=== PATIENT | female | born 1960 | race Caucasian/White ===

== ENCOUNTER 2023-05-12 11:45 | Inpatient (IN) | payer BC, OTHER ==
[~2023-05-12] VITALS: Ht 149.9 cm; Wt 144.7 kg
[~2023-05-12 11:45] MED LIST: ASPIRIN; CYMBALTA30 MG PO; FLUOXETINE HCL20 MG PO; LEVOTHYROXINE75 MCG PO; METFORMIN HCL500 MG PO; NORCO 5-325 TA1 EACH PO; PRILOSEC OTC20 MG; PROGESTERONE200 MG PO; ZESTRIL20 MG PO
[2023-05-12] MEDS ORDERED: KETOROLAC TROMETHAMINE 30 MG/ML VIAL IV STA (12:04)
[2023-05-12] MEDS ORDERED: SODIUM CHLORIDE 0.9% 1000ML 1,000 ML IV STA (12:04)
[2023-05-12] MEDS ORDERED: DICYCLOMINE HCL 20 MG/2 ML VIAL IM ONE (12:15)
[2023-05-12] MEDS: ONDANSETRON HCL INJ 2MG/ML 2ML 2 MG/ML VIAL IV PRN ×2 (13:16→21:34)
[2023-05-12 13:27] LABS: BASOPHILS % 0.3 % (0.0-1.0); EOSINOPHILS # (AUTO) 0.1 (0.0-0.4); EOSINOPHILS % 0.5 % (0.0-6.0); HEMATOCRIT 40.1 % (34.2-44.1); HEMOGLOBIN 12.9 g/dL (12.0-16.0); LYMPHOCYTES # (AUTO) 2.2 (1.0-3.2); LYMPHOCYTES % 16.1 % (18.0-39.1); MEAN CORPUSCULAR HEMOGLOBIN 27.3 pg (28-32); MEAN CORPUSCULAR HGB CONC 32.2 g/dL (31-35); MEAN CORPUSCULAR VOLUME 84.8 fL (81-99); MONOCYTES # (AUTO) 0.8 (0.2-0.8); MONOCYTES % 6.1 % (4.4-11.3); NEUTROPHILS # (AUTO) 10.4 (2.1-6.9); NEUTROPHILS % 76.6 % (38.7-80.0); PLATELET COUNT 408 x10e3/uL (140-360); RED BLOOD COUNT 4.73 x10e6/uL (3.6-5.1); RED CELL DISTRIBUTION WIDTH 14.3 % (11.7-14.4); WHITE BLOOD COUNT 13.54 x10e3/uL (4.8-10.8)
[2023-05-12 13:37] LABS: CLARITY,URINE SL CLOUDY (CLEAR); COLOR,URINE YELLOW (YELLOW); LEUKOCYTE ESTERASE ,URINE SMALL (NEGATIVE); NITRITE,URINE NEGATIVE (NEGATIVE); PH,URINE 7 (5 - 7); PROTEIN,URINE DIPSTICK 2+ (NEGATIVE)
[2023-05-12 13:38] LABS: BILIRUBIN,URINE SMALL (NEGATIVE); GLUCOSE, URINE NEGATIVE (NEGATIVE); KETONES,URINE NEGATIVE (NEGATIVE); URINE UROBILINOGEN 0.2 mg/dL (0.2 - 1)
[2023-05-12 13:46] LABS: BACTERIA,URINE FEW /HPF; EPITHELIAL CELLS,URINE MODERATE /LPF; WBC,URINE (MAN) 21-50 /HPF (0-5)
[2023-05-12 13:47] LABS: CALCIUM OXALATE CRYSTALS,UR RARE (FEW)
[2023-05-12 14:11] LABS: ALBUMIN 3.9 g/dL (3.5-5.0); ALBUMIN/GLOBULIN RATIO 0.8 (0.8-2.0); ANION GAP 14.9 mmol/L (8-16); BILIRUBIN,TOTAL 0.7 mg/dL (0.2-1.2); CALCIUM 11.9 mg/dL (8.4-10.2); CREATININE, SERUM 0.81 mg/dL (0.57-1.11); POTASSIUM 3.9 mmol/L (3.5-5.1); TOTAL PROTEIN 8.6 g/dL (6.5-8.1)
[2023-05-12] MEDS ORDERED: IOPAMIDOL 370 MG/ML 100 ML INFUS..BTL INJ ONE (14:31)
[2023-05-12] MEDS ORDERED: ONDANSETRON HCL INJ 2MG/ML 2ML 2 MG/ML VIAL IV PRN (17:00)
[2023-05-12] MEDS: SODIUM CHLORIDE 0.9% 1000ML 1,000 ML IV SCH ×2 (18:54→23:39)
[2023-05-12 19:38] VITALS: BP 145/72; PULSE 71; RESP 20; TEMP 98; O2SAT 97
[2023-05-12 19:57] LABS: TROPONIN I 0.007 ng/mL (0-0.300)
[2023-05-12] MEDS ORDERED: LEXAPRO10 MG PO (20:55)
[2023-05-12] MEDS ORDERED: PRILOSEC OTC20 MG (20:55)
[2023-05-12] MEDS: Morphine 4mg INJECTION 4 MG/ML INJ IV PRN (21:33)
[2023-05-12 21:49] VITALS: BP 145/72; PULSE 71; RESP 18; TEMP 98; O2SAT 97
[2023-05-12 22:16] VITALS: BP 145/72; PULSE 71; RESP 18; TEMP 98; O2SAT 98
[2023-05-13] VITALS (9 sets, daily range): BP systolic 122–138; BP diastolic 61–81; PULSE 64–103; RESP 17–20; TEMP 98–98.6; O2SAT 93–100
[2023-05-13 06:00] LABS: BASOPHILS # (AUTO) 0.1 (0.0-0.1); BASOPHILS % 0.6 % (0.0-1.0); EOSINOPHILS # (AUTO) 0.2 (0.0-0.4); EOSINOPHILS % 2.8 % (0.0-6.0); HEMATOCRIT 36.6 % (34.2-44.1); HEMOGLOBIN 11.4 g/dL (12.0-16.0); LYMPHOCYTES # (AUTO) 2.3 (1.0-3.2); LYMPHOCYTES % 27.8 % (18.0-39.1); MEAN CORPUSCULAR HEMOGLOBIN 27.1 pg (28-32); MEAN CORPUSCULAR HGB CONC 31.1 g/dL (31-35); MEAN CORPUSCULAR VOLUME 86.9 fL (81-99); MONOCYTES # (AUTO) 0.6 (0.2-0.8); MONOCYTES % 6.8 % (4.4-11.3); NEUTROPHILS # (AUTO) 5.2 (2.1-6.9); NEUTROPHILS % 61.6 % (38.7-80.0); PLATELET COUNT 290 x10e3/uL (140-360); RED BLOOD COUNT 4.21 x10e6/uL (3.6-5.1); RED CELL DISTRIBUTION WIDTH 14.3 % (11.7-14.4); WHITE BLOOD COUNT 8.35 x10e3/uL (4.8-10.8)
[2023-05-13 06:23] LABS: ALBUMIN 3.1 g/dL (3.5-5.0); ALBUMIN/GLOBULIN RATIO 0.8 (0.8-2.0); ANION GAP 9.4 mmol/L (8-16); BILIRUBIN,TOTAL 1.1 mg/dL (0.2-1.2); CALCIUM 10.5 mg/dL (8.4-10.2); CREATININE, SERUM 0.77 mg/dL (0.57-1.11); POTASSIUM 4.4 mmol/L (3.5-5.1); TOTAL PROTEIN 7.1 g/dL (6.5-8.1)
[2023-05-13 06:50] LABS: CREATINE KINASE 27 IU/L (29-168)
[2023-05-13 07:00] LABS: TROPONIN I < 0.001 ng/mL (0-0.300)
[2023-05-13] MEDS: ONDANSETRON HCL INJ 2MG/ML 2ML 2 MG/ML VIAL IV PRN ×2 (08:52→20:04)
[2023-05-13] MEDS: Morphine 4mg INJECTION 4 MG/ML INJ IV PRN ×2 (08:52→20:04)
[2023-05-13] MEDS: DULOXETINE HCL 30 MG DELAYED RELEASE PO SCH (10:00)
[2023-05-13] MEDS: FLUOXETINE HCL 20 MG CAP PO SCH (10:00)
[2023-05-13] MEDS: LISINOPRIL 20 MG TAB PO SCH (10:00)
[2023-05-13] MEDS: LEVOTHYROXINE SODIUM 75 MCG TAB PO SCH (10:00)
[2023-05-13] MEDS ORDERED: HYDRALAZINE HCL 20 MG/ML VIAL IV PRN (11:00)
[2023-05-13 14:54] LABS: TROPONIN I 0.003 ng/mL (0-0.300)
[2023-05-13] MEDS: SODIUM CHLORIDE 0.9% 1000ML 1,000 ML IV SCH ×3 (17:00→23:43)
[2023-05-14] VITALS (10 sets, daily range): BP systolic 116–149; BP diastolic 61–77; PULSE 69–96; RESP 17–20; TEMP 97.9–98.6; O2SAT 92–96
[2023-05-14] MEDS: ONDANSETRON HCL INJ 2MG/ML 2ML 2 MG/ML VIAL IV PRN ×2 (00:51→04:36)
[2023-05-14] MEDS: Morphine 4mg INJECTION 4 MG/ML INJ IV PRN ×4 (00:51→23:19)
[2023-05-14] MEDS: LEVOTHYROXINE SODIUM 75 MCG TAB PO SCH (05:46)
[2023-05-14 06:47] LABS: BASOPHILS % 0.4 % (0.0-1.0); EOSINOPHILS # (AUTO) 0.4 (0.0-0.4); EOSINOPHILS % 4.7 % (0.0-6.0); HEMOGLOBIN 10.9 g/dL (12.0-16.0); LYMPHOCYTES % 25.2 % (18.0-39.1); MEAN CORPUSCULAR HEMOGLOBIN 26.7 pg (28-32); MEAN CORPUSCULAR HGB CONC 30.3 g/dL (31-35); MEAN CORPUSCULAR VOLUME 88.2 fL (81-99); MONOCYTES # (AUTO) 0.6 (0.2-0.8); MONOCYTES % 7.6 % (4.4-11.3); NEUTROPHILS # (AUTO) 4.8 (2.1-6.9); NEUTROPHILS % 61.8 % (38.7-80.0); PLATELET COUNT 280 x10e3/uL (140-360); RED BLOOD COUNT 4.08 x10e6/uL (3.6-5.1); RED CELL DISTRIBUTION WIDTH 14.5 % (11.7-14.4); WHITE BLOOD COUNT 7.74 x10e3/uL (4.8-10.8)
[2023-05-14 07:06] LABS: ALBUMIN/GLOBULIN RATIO 0.8 (0.8-2.0); ANION GAP 11.1 mmol/L (8-16); BILIRUBIN,TOTAL 0.6 mg/dL (0.2-1.2); CALCIUM 10.4 mg/dL (8.4-10.2); CHOL/HDL RATIO 2.7 (3.0-3.6); CREATININE, SERUM 0.71 mg/dL (0.57-1.11); MAGNESIUM 2.1 MG/DL (1.3-2.1); PHOSPHORUS 2.4 MG/DL (2.3-4.7); POTASSIUM 4.1 mmol/L (3.5-5.1); TOTAL PROTEIN 6.9 g/dL (6.5-8.1)
[2023-05-14 07:28] LABS: FREE T4 (FREE THYROXINE) 0.89 ng/dL (0.8-1.8); THYROID STIMULATING HORMONE 2.733 uIU/mL (0.350-4.940)
[2023-05-14] MEDS: LISINOPRIL 20 MG TAB PO SCH (08:39)
[2023-05-14] MEDS: DULOXETINE HCL 30 MG DELAYED RELEASE PO SCH (08:39)
[2023-05-14] MEDS: FLUOXETINE HCL 20 MG CAP PO SCH (08:39)
[2023-05-14] MEDS: SODIUM CHLORIDE 0.9% 1000ML 1,000 ML IV SCH ×3 (08:46→23:14)
[2023-05-14] MEDS: NON-FORMULARY MEDICATION (Progesterone,Micronized (Progesterone) 200 MG) PO SCH (09:00)
[2023-05-14 12:58] LABS: CHOL/HDL RATIO 2.7 (3.0-3.6)
[2023-05-15] VITALS (10 sets, daily range): BP systolic 102–127; BP diastolic 56–70; PULSE 57–80; RESP 18–19; TEMP 97.6–98.4; O2SAT 91–99
[2023-05-15] MEDS: ONDANSETRON HCL INJ 2MG/ML 2ML 2 MG/ML VIAL IV PRN (04:26)
[2023-05-15] MEDS: SODIUM CHLORIDE 0.9% 1000ML 1,000 ML IV SCH ×2 (05:39→17:13)
[2023-05-15] MEDS: LEVOTHYROXINE SODIUM 75 MCG TAB PO SCH (05:44)
[2023-05-15] MEDS: DULOXETINE HCL 30 MG DELAYED RELEASE PO SCH (09:00)
[2023-05-15] MEDS: NON-FORMULARY MEDICATION (Progesterone,Micronized (Progesterone) 200 MG) PO SCH (09:00)
[2023-05-15] MEDS: FLUOXETINE HCL 20 MG CAP PO SCH (09:00)
[2023-05-15] MEDS: LISINOPRIL 20 MG TAB PO SCH (09:00)
[2023-05-15] MEDS: Morphine 4mg INJECTION 4 MG/ML INJ IV PRN (09:22)
[2023-05-16] VITALS (10 sets, daily range): BP systolic 123–165; BP diastolic 63–96; PULSE 61–106; RESP 15–20; TEMP 97.9–98.6; O2SAT 95–100
[2023-05-16] MEDS: SODIUM CHLORIDE 0.9% 1000ML 1,000 ML IV SCH ×3 (00:17→17:58)
[2023-05-16] MEDS: Morphine 4mg INJECTION 4 MG/ML INJ IV PRN ×3 (00:19→23:47)
[2023-05-16] MEDS: ONDANSETRON HCL INJ 2MG/ML 2ML 2 MG/ML VIAL IV PRN ×3 (00:27→23:47)
[2023-05-16 03:33] LABS: % IRON SATURATION 11 % (15-50); IRON 35 ug/dL (50-170); TOTAL IRON BINDING CAPACITY 316 ug/dL (261-478); TRANSFERRIN 226 mg/dL (180-382)
[2023-05-16 04:51] LABS: FOLATE 6.5 ng/mL (7.0-15.4)
[2023-05-16] MEDS: LEVOTHYROXINE SODIUM 75 MCG TAB PO SCH (05:29)
[2023-05-16] MEDS: NON-FORMULARY MEDICATION (Progesterone,Micronized (Progesterone) 200 MG) PO SCH (09:00)
[2023-05-16] MEDS: FLUOXETINE HCL 20 MG CAP PO SCH (09:00)
[2023-05-16] MEDS: DULOXETINE HCL 30 MG DELAYED RELEASE PO SCH (09:00)
[2023-05-16] MEDS: LISINOPRIL 20 MG TAB PO SCH (09:00)
[2023-05-16 10:07] LABS: BASOPHILS % 0.2 % (0.0-1.0); EOSINOPHILS # (AUTO) 0.4 (0.0-0.4); EOSINOPHILS % 4.4 % (0.0-6.0); HEMATOCRIT 35.2 % (34.2-44.1); LYMPHOCYTES # (AUTO) 1.8 (1.0-3.2); LYMPHOCYTES % 19.7 % (18.0-39.1); MEAN CORPUSCULAR HEMOGLOBIN 27.3 pg (28-32); MEAN CORPUSCULAR HGB CONC 31.3 g/dL (31-35); MEAN CORPUSCULAR VOLUME 87.3 fL (81-99); MONOCYTES # (AUTO) 0.5 (0.2-0.8); MONOCYTES % 5.5 % (4.4-11.3); NEUTROPHILS # (AUTO) 6.4 (2.1-6.9); NEUTROPHILS % 69.8 % (38.7-80.0); PLATELET COUNT 275 x10e3/uL (140-360); RED BLOOD COUNT 4.03 x10e6/uL (3.6-5.1); RED CELL DISTRIBUTION WIDTH 14.2 % (11.7-14.4); WHITE BLOOD COUNT 9.13 x10e3/uL (4.8-10.8)
[2023-05-16 10:41] LABS: ANION GAP 16.2 mmol/L (8-16); CALCIUM 10.7 mg/dL (8.4-10.2); CREATININE, SERUM 0.66 mg/dL (0.57-1.11); POTASSIUM 4.2 mmol/L (3.5-5.1)
[2023-05-17] VITALS (10 sets, daily range): BP systolic 116–166; BP diastolic 54–76; PULSE 52–93; RESP 17–20; TEMP 97.5–98.3; O2SAT 96–100
[2023-05-17] MEDS: SODIUM CHLORIDE 0.9% 1000ML 1,000 ML IV SCH ×3 (01:32→16:41)
[2023-05-17] MEDS: LEVOTHYROXINE SODIUM 75 MCG TAB PO SCH (02:45)
[2023-05-17] MEDS: ONDANSETRON HCL INJ 2MG/ML 2ML 2 MG/ML VIAL IV PRN (05:41)
[2023-05-17] MEDS: Morphine 4mg INJECTION 4 MG/ML INJ IV PRN (05:41)
[2023-05-17] MEDS: NON-FORMULARY MEDICATION (Progesterone,Micronized (Progesterone) 200 MG) PO SCH (09:00)
[2023-05-17] MEDS: DULOXETINE HCL 30 MG DELAYED RELEASE PO SCH (09:11)
[2023-05-17] MEDS: FLUOXETINE HCL 20 MG CAP PO SCH (09:11)
[2023-05-17] MEDS: LISINOPRIL 20 MG TAB PO SCH (11:05)
[2023-05-18] VITALS: BP 137/68; PULSE 70; RESP 20; TEMP 98; O2SAT 97
[2023-05-18] MEDS: SODIUM CHLORIDE 0.9% 1000ML 1,000 ML IV SCH ×2 (01:03→08:37)
[2023-05-18 04:00] VITALS: BP 158/77; PULSE 71; RESP 18; TEMP 98.1; O2SAT 100
[2023-05-18 05:43] LABS: HEPATITIS B SURFACE AG (P) Negative
[2023-05-18 05:44] LABS: HEPATITIS C ANTIBODY Non Reactive
[2023-05-18 05:57] LABS: BASOPHILS % 0.3 % (0.0-1.0); EOSINOPHILS # (AUTO) 0.4 (0.0-0.4); EOSINOPHILS % 5.1 % (0.0-6.0); HEMATOCRIT 34.5 % (34.2-44.1); LYMPHOCYTES # (AUTO) 1.7 (1.0-3.2); LYMPHOCYTES % 20.8 % (18.0-39.1); MEAN CORPUSCULAR HEMOGLOBIN 26.9 pg (28-32); MEAN CORPUSCULAR HGB CONC 31.9 g/dL (31-35); MEAN CORPUSCULAR VOLUME 84.4 fL (81-99); MONOCYTES # (AUTO) 0.5 (0.2-0.8); MONOCYTES % 5.9 % (4.4-11.3); NEUTROPHILS # (AUTO) 5.4 (2.1-6.9); NEUTROPHILS % 67.4 % (38.7-80.0); PLATELET COUNT 274 x10e3/uL (140-360); RED BLOOD COUNT 4.09 x10e6/uL (3.6-5.1); RED CELL DISTRIBUTION WIDTH 14.3 % (11.7-14.4); WHITE BLOOD COUNT 7.97 x10e3/uL (4.8-10.8)
[2023-05-18] MEDS: LEVOTHYROXINE SODIUM 75 MCG TAB PO SCH (06:23)
[2023-05-18 06:33] LABS: ALBUMIN 3.1 g/dL (3.5-5.0); ALBUMIN/GLOBULIN RATIO 0.8 (0.8-2.0); ANION GAP 16.4 mmol/L (8-16); BILIRUBIN,TOTAL 0.6 mg/dL (0.2-1.2); CALCIUM 10.8 mg/dL (8.4-10.2); CREATININE, SERUM 0.63 mg/dL (0.57-1.11); POTASSIUM 3.4 mmol/L (3.5-5.1)
[2023-05-18 07:10] VITALS: PULSE 73; RESP 18; O2SAT 95
[2023-05-18 08:17] VITALS: BP 156/77; PULSE 64; RESP 19; TEMP 97.9; O2SAT 100
[2023-05-18 08:19] VITALS: BP 156/77; PULSE 64; RESP 19; TEMP 97.9; O2SAT 100
[2023-05-18] MEDS: LISINOPRIL 20 MG TAB PO SCH (08:36)
[2023-05-18] MEDS: FLUOXETINE HCL 20 MG CAP PO SCH (08:36)
[2023-05-18] MEDS: DULOXETINE HCL 30 MG DELAYED RELEASE PO SCH (08:36)
[2023-05-18] MEDS: NON-FORMULARY MEDICATION (Progesterone,Micronized (Progesterone) 200 MG) PO SCH (08:37)
[2023-05-18] MEDS ORDERED: FOLIC ACID/CYANOCOB/PYRIDOXINE TAB PO SCH (09:00)
[2023-05-18] MEDS ORDERED: IRON SUCROSE 100 MG in SODIUM CHLORIDE 0.9% 100 ML IV SCH (09:00)
[2023-05-18] MEDS ORDERED: POTASSIUM CHLORIDE 20 MEQ TAB CR PO ONE (10:15)
[2023-05-18] MEDS ORDERED: ULTRAM 50MG50 MG PO (11:51)
[2023-05-18] MEDS ORDERED: NEPHRO-VITE TABL1 EA PO (11:51)
[2023-05-18] MEDS ORDERED: ONDANSETRON ODT4 MG PO (11:51)
[2023-05-18 12:29] VITALS: BP 159/90; PULSE 66; RESP 19; TEMP 97.8; O2SAT 100
[2023-05-18] MEDS ORDERED: FEROSUL325 MG PO (12:40)
[2023-05-18] MEDS ORDERED: VITAMIN C500 M2 PO (12:40)
== END 2023-05-18 16:25 | disposition home or self-care (01) | DRG 394 ==
LOC: ER 12:04 → ERHOLD 16:55 → MED/SURG3 19:43
PROVIDERS: ADMIT Internal Medicine; ATTEND Internal Medicine
DX: K43.6 Other and unspecified ventral hernia with obstruction, without gangrene (principal); Z68.44 Body mass index [BMI] 60.0-69.9, adult; R16.2 Hepatomegaly with splenomegaly, not elsewhere classified; K76.0 Fatty (change of) liver, not elsewhere classified; E83.52 Hypercalcemia; E66.01 Morbid (severe) obesity due to excess calories; F32.A Depression, unspecified; K21.9 Gastro-esophageal reflux disease without esophagitis; M19.90 Unspecified osteoarthritis, unspecified site; Z66 Do not resuscitate; E86.0 Dehydration; E03.9 Hypothyroidism, unspecified; R53.1 Weakness; R82.994 Hypercalciuria; R09.02 Hypoxemia; M17.11 Unilateral primary osteoarthritis, right knee; D50.9 Iron deficiency anemia, unspecified; D75.839 Thrombocytosis, unspecified; R74.01 Elevation of levels of liver transaminase levels; Z79.890 Hormone replacement therapy; Z79.899 Other long term (current) drug therapy; Z20.822 Contact with and (suspected) exposure to COVID-19
CPT/HCPCS: 36415; 74018; 74177; 76705; 80048; 80053; 80061; 81001; 82270; 82550; 82607; 82746; 83036; 83540; 83690; 83735; 83970; 84100; 84439; 84443; 84466; 84484; 85025; 85045; 87086; 93005; 94799; 99284; J1756; J1885; J2270; J2405; J2543; J7030; J7050; Q9967; U0002

== ENCOUNTER 2023-10-27 22:58 | Inpatient (IN) | payer BC, OTHER ==
[~2023-10-27] VITALS: Ht 152.4 cm; Wt 127.0 kg
[~2023-10-27 22:58] MED LIST changes: +FEROSUL325 MG PO; +LEXAPRO10 MG PO; +NEPHRO-VITE TABL1 EA PO; +ONDANSETRON ODT4 MG PO; +ULTRAM 50MG50 MG PO; +VITAMIN C500 M2 PO
[2023-10-27] MEDS ORDERED: KETOROLAC TROMETHAMINE 60 MG/2 ML VIAL IM ONE (23:15)
[2023-10-27] MEDS ORDERED: ONDANSETRON HCL 4 MG ORAL DISINTEGRATING TAB PO ONE (23:15)
[2023-10-27 23:43] LABS: BASOPHILS # (AUTO) 0.1 (0.0-0.1); BASOPHILS % 0.5 % (0.0-1.0); EOSINOPHILS # (AUTO) 0.1 (0.0-0.4); EOSINOPHILS % 0.7 % (0.0-6.0); HEMATOCRIT 32.9 % (34.2-44.1); HEMOGLOBIN 10.6 g/dL (12.0-16.0); LYMPHOCYTES # (AUTO) 0.9 (1.0-3.2); LYMPHOCYTES % 7.1 % (18.0-39.1); MEAN CORPUSCULAR HEMOGLOBIN 26.6 pg (28-32); MEAN CORPUSCULAR HGB CONC 32.2 g/dL (31-35); MEAN CORPUSCULAR VOLUME 82.7 fL (81-99); MONOCYTES # (AUTO) 0.6 (0.2-0.8); MONOCYTES % 4.9 % (4.4-11.3); NEUTROPHILS # (AUTO) 11.1 (2.1-6.9); NEUTROPHILS % 85.3 % (38.7-80.0); PLATELET COUNT 188 x10e3/uL (140-360); RED BLOOD COUNT 3.98 x10e6/uL (3.6-5.1); RED CELL DISTRIBUTION WIDTH 15.5 % (11.7-14.4); WHITE BLOOD COUNT 12.96 x10e3/uL (4.8-10.8)
[2023-10-27 23:56] LABS: ALBUMIN 2.2 g/dL (3.5-5.0); ALBUMIN/GLOBULIN RATIO 0.4 (0.8-2.0); ANION GAP 15.8 mmol/L (8-16); CREATININE, SERUM 2.56 mg/dL (0.57-1.11); POTASSIUM 3.8 mmol/L (3.5-5.1); TOTAL PROTEIN 7.2 g/dL (6.5-8.1)
[2023-10-28] VITALS (9 sets, daily range): BP systolic 97–106; BP diastolic 54–81; PULSE 64–77; RESP 17–20; TEMP 97.6–98.2; O2SAT 93–98
[2023-10-28] LABS: TROPONIN I 0.17 ng/mL (0-0.300)
[2023-10-28] MEDS: KETOROLAC TROMETHAMINE 30 MG/ML VIAL IV STA (00:21)
[2023-10-28] MEDS: ONDANSETRON HCL INJ 2MG/ML 2ML 2 MG/ML VIAL IV STA (00:22)
[2023-10-28] MEDS: SODIUM CHLORIDE 0.9% 1000ML 1,000 ML IV STA (00:22)
[2023-10-28] MEDS ORDERED: NAPROXEN250 MG PO (03:55)
[2023-10-28] MEDS ORDERED: CYCLOBENZAPRINE5 MG PO (03:55)
[2023-10-28] MEDS: SODIUM CHLORIDE 0.9% 1000ML 1,000 ML IV SCH (06:14)
[2023-10-28] MEDS: Morphine 4mg INJECTION 4 MG/ML INJ IV PRN (06:23)
[2023-10-28] MEDS ORDERED: METOPROLOL TARTRATE INJ 1 MG/ML VIAL IV PRN (11:15)
[2023-10-28] MEDS ORDERED: ALBUTEROL/IPRATROPIUM 3 ML NEB NEB PRN (11:15)
[2023-10-28] MEDS ORDERED: DOCUSATE SODIUM 100 MG CAP PO PRN (11:15)
[2023-10-28] MEDS ORDERED: DEXTROSE 50% SYRINGE 50 ML IV PRN (11:30)
[2023-10-28] MEDS: INSULIN REGULAR, HUMAN 100 UNIT/1 ML SQ SCH (11:30)
[2023-10-28 12:22] LABS: CHOL/HDL RATIO 17.8 (3.0-3.6)
[2023-10-29] VITALS (8 sets, daily range): BP systolic 97–115; BP diastolic 51–65; PULSE 67–82; RESP 16–20; TEMP 97.6–98.1; O2SAT 92–98
[2023-10-29] MEDS: ONDANSETRON HCL INJ 2MG/ML 2ML 2 MG/ML VIAL IV PRN (03:56)
[2023-10-29 06:24] LABS: BASOPHILS % 0.2 % (0.0-1.0); EOSINOPHILS # (AUTO) 0.2 (0.0-0.4); EOSINOPHILS % 1.2 % (0.0-6.0); HEMATOCRIT 32.3 % (34.2-44.1); HEMOGLOBIN 10.4 g/dL (12.0-16.0); LYMPHOCYTES # (AUTO) 1.2 (1.0-3.2); MEAN CORPUSCULAR HEMOGLOBIN 26.8 pg (28-32); MEAN CORPUSCULAR HGB CONC 32.2 g/dL (31-35); MEAN CORPUSCULAR VOLUME 83.2 fL (81-99); MONOCYTES # (AUTO) 0.9 (0.2-0.8); MONOCYTES % 7.3 % (4.4-11.3); NEUTROPHILS # (AUTO) 9.8 (2.1-6.9); NEUTROPHILS % 79.5 % (38.7-80.0); PLATELET COUNT 220 x10e3/uL (140-360); RED BLOOD COUNT 3.88 x10e6/uL (3.6-5.1); RED CELL DISTRIBUTION WIDTH 15.9 % (11.7-14.4); WHITE BLOOD COUNT 12.27 x10e3/uL (4.8-10.8)
[2023-10-29 06:34] LABS: ALBUMIN 1.9 g/dL (3.5-5.0); ALBUMIN/GLOBULIN RATIO 0.4 (0.8-2.0); BILIRUBIN,TOTAL 0.9 mg/dL (0.2-1.2); CALCIUM 10.4 mg/dL (8.4-10.2); CREATININE, SERUM 2.37 mg/dL (0.57-1.11); TOTAL PROTEIN 6.2 g/dL (6.5-8.1)
[2023-10-29 07:09] LABS: MAGNESIUM 2.4 MG/DL (1.3-2.1); PHOSPHORUS 4.1 MG/DL (2.3-4.7)
[2023-10-29] MEDS: FLUOXETINE HCL 20 MG CAP PO SCH (08:20)
[2023-10-29] MEDS ORDERED: SODIUM BICARBONATE 8.4% 50 ML in SODIUM CHLORIDE 0.45% 1,000 ML IV SCH (09:30)
[2023-10-29] MEDS: SODIUM BICARBONATE 8.4% 75 ML in SODIUM CHLORIDE 0.45% 1,000 ML IV SCH (12:14)
[2023-10-29 13:01] LABS: CLARITY,URINE TURBID (CLEAR); COLOR,URINE YELLOW (YELLOW)
[2023-10-29 13:02] LABS: BACTERIA,URINE FEW /HPF; BILIRUBIN,URINE NEGATIVE (NEGATIVE); EPITHELIAL CELLS,URINE FEW /LPF; GLUCOSE, URINE NEGATIVE (NEGATIVE); KETONES,URINE NEGATIVE (NEGATIVE); LEUKOCYTE ESTERASE ,URINE LARGE (NEGATIVE); NITRITE,URINE NEGATIVE (NEGATIVE); PH,URINE 5.5 (5 - 7); PROTEIN,URINE DIPSTICK 1+ (NEGATIVE); RBC,URINE >50 /HPF (0-5); WBC,URINE (MAN) >50 /HPF (0-5)
[2023-10-29 13:47] LABS: SODIUM,URINE < 20 mmol/L
[2023-10-29] MEDS: GABAPENTIN 100 MG CAP PO SCH (16:18)
[2023-10-30] VITALS (8 sets, daily range): BP systolic 100–124; BP diastolic 46–69; PULSE 71–87; RESP 18–20; TEMP 97.6–98.6; O2SAT 94–97
[2023-10-30 05:33] LABS: BASOPHILS # (AUTO) 0.1 (0.0-0.1); BASOPHILS % 0.6 % (0.0-1.0); EOSINOPHILS # (AUTO) 0.1 (0.0-0.4); EOSINOPHILS % 1.3 % (0.0-6.0); HEMATOCRIT 32.7 % (34.2-44.1); LYMPHOCYTES # (AUTO) 1.4 (1.0-3.2); MEAN CORPUSCULAR HGB CONC 30.6 g/dL (31-35); MEAN CORPUSCULAR VOLUME 84.9 fL (81-99); MONOCYTES # (AUTO) 0.8 (0.2-0.8); MONOCYTES % 7.8 % (4.4-11.3); NEUTROPHILS # (AUTO) 8.1 (2.1-6.9); NEUTROPHILS % 75.2 % (38.7-80.0); PLATELET COUNT 260 x10e3/uL (140-360); RED BLOOD COUNT 3.85 x10e6/uL (3.6-5.1); RED CELL DISTRIBUTION WIDTH 16.2 % (11.7-14.4); WHITE BLOOD COUNT 10.76 x10e3/uL (4.8-10.8)
[2023-10-30 06:21] LABS: ALBUMIN 1.7 g/dL (3.5-5.0); ALBUMIN/GLOBULIN RATIO 0.4 (0.8-2.0); BILIRUBIN,TOTAL 1.1 mg/dL (0.2-1.2); CALCIUM 9.9 mg/dL (8.4-10.2); CREATININE, SERUM 2.02 mg/dL (0.57-1.11); MAGNESIUM 2.4 MG/DL (1.3-2.1); TOTAL PROTEIN 6.2 g/dL (6.5-8.1)
[2023-10-30 06:40] LABS: PHOSPHORUS 3.7 MG/DL (2.3-4.7)
[2023-10-30 07:53] LABS: ANISOCYTOSIS SLIGHT; LYMPHOCYTES % (MANUAL) 16 % (19-48); METAMYELOCYTES % (MANUAL) 1 % (0-0); MONOCYTES % (MANUAL) 5 % (3.4-9.0); MYELOCYTES % (MANUAL) 3 % (0-0); NEUTROPHILS % (MANUAL) 75 % (40-74); PLATELET ESTIMATE ADEQUATE; RBC MORPHOLOGY COMMENT NORMAL
[2023-10-30 07:54] LABS: HYPOCHROMASIA SLIGHT; PLATELET MORPHOLOGY COMMENT FEW LARGE; TOXIC GRANULATION MODERATE
[2023-10-30] MEDS: MELATONIN 3 MG TAB PO PRN (21:49)
[2023-10-30] MEDS: SIMETHICONE 80 MG CHEW PO PRN (21:50)
[2023-10-31] VITALS: BP 101/62; PULSE 72; RESP 18; TEMP 98.1; O2SAT 98
[2023-10-31 04:00] VITALS: BP 117/68; PULSE 79; RESP 18; TEMP 98; O2SAT 97
[2023-10-31 07:55] LABS: ANION GAP 13.9 mmol/L (8-16); CALCIUM 10.5 mg/dL (8.4-10.2); CREATININE, SERUM 1.32 mg/dL (0.57-1.11); POTASSIUM 3.9 mmol/L (3.5-5.1)
[2023-10-31 08:10] VITALS: BP 134/70; PULSE 78; RESP 20; TEMP 98.8; O2SAT 98
[2023-10-31 12:28] VITALS: BP 138/73; PULSE 77; RESP 20; TEMP 98.8; O2SAT 98
[2023-10-31 16:42] VITALS: BP 121/65; PULSE 73; RESP 20; TEMP 99.3; O2SAT 100
[2023-10-31 18:59] LABS: CLARITY,URINE CLOUDY (CLEAR); COLOR,URINE AMBER (YELLOW); GLUCOSE, URINE NEGATIVE (NEGATIVE); KETONES,URINE 1+ (NEGATIVE); LEUKOCYTE ESTERASE ,URINE 2+ (NEGATIVE); NITRITE,URINE NEGATIVE (NEGATIVE); PH,URINE 6.5 (5 - 7); PROTEIN,URINE DIPSTICK 1+ (NEGATIVE); URINE UROBILINOGEN 2 mg/dL (0.2 - 1)
[2023-10-31 19:00] LABS: BILIRUBIN,URINE 3+ (NEGATIVE)
[2023-10-31 19:05] LABS: BACTERIA,URINE MANY /HPF; EPITHELIAL CELLS,URINE FEW /LPF; RBC,URINE 21-50 /HPF (0-5)
[2023-11-01] VITALS (7 sets, daily range): BP systolic 138–159; BP diastolic 62–80; PULSE 64–80; RESP 16–18; TEMP 97.9–98.8; O2SAT 95–98
[2023-11-02] VITALS (8 sets, daily range): BP systolic 136–169; BP diastolic 59–84; PULSE 75–98; RESP 18–20; TEMP 98.1–98.7; O2SAT 92–96
[2023-11-02] MEDS: ACETAMINOPHEN/CODEINE 300MG - 30MG TAB PO PRN (10:52)
[2023-11-02] MEDS: SODIUM CHLORIDE 0.9% 250ML 250 ML ONE (11:24)
[2023-11-02 11:51] LABS: BASOPHILS % 0.3 % (0.0-1.0); EOSINOPHILS # (AUTO) 0.2 (0.0-0.4); EOSINOPHILS % 1.5 % (0.0-6.0); HEMATOCRIT 32.3 % (34.2-44.1); HEMOGLOBIN 10.3 g/dL (12.0-16.0); LYMPHOCYTES # (AUTO) 1.6 (1.0-3.2); MEAN CORPUSCULAR HEMOGLOBIN 26.5 pg (28-32); MEAN CORPUSCULAR HGB CONC 31.9 g/dL (31-35); MONOCYTES # (AUTO) 0.7 (0.2-0.8); MONOCYTES % 5.3 % (4.4-11.3); NEUTROPHILS # (AUTO) 10.1 (2.1-6.9); NEUTROPHILS % 78.7 % (38.7-80.0); PLATELET COUNT 385 x10e3/uL (140-360); RED BLOOD COUNT 3.89 x10e6/uL (3.6-5.1); RED CELL DISTRIBUTION WIDTH 15.5 % (11.7-14.4); WHITE BLOOD COUNT 12.87 x10e3/uL (4.8-10.8)
[2023-11-02 12:08] LABS: ANION GAP 13.6 mmol/L (8-16); CALCIUM 10.2 mg/dL (8.4-10.2); CREATININE, SERUM 0.78 mg/dL (0.57-1.11); POTASSIUM 3.6 mmol/L (3.5-5.1)
[2023-11-03] VITALS: BP 140/84; PULSE 92; RESP 18; TEMP 98.7; O2SAT 92
[2023-11-03 04:00] VITALS: BP 133/77; PULSE 88; RESP 19; TEMP 98.6; O2SAT 95
[2023-11-03 06:36] LABS: CALCIUM 10.8 mg/dL (8.4-10.2); CREATININE, SERUM 0.78 mg/dL (0.57-1.11); MAGNESIUM 1.6 MG/DL (1.3-2.1)
[2023-11-03 07:57] VITALS: BP 154/83; PULSE 87; RESP 18; TEMP 98.3; O2SAT 95
[2023-11-03 09:00] VITALS: BP 154/83; PULSE 87; RESP 18; TEMP 98.3; O2SAT 95
[2023-11-03 11:20] VITALS: BP 136/71; PULSE 76; RESP 20; TEMP 98.3; O2SAT 96
[2023-11-03 15:15] VITALS: BP 158/83; PULSE 74; RESP 18; TEMP 97.5; O2SAT 95
[2023-11-03] MEDS: POTASSIUM PHOSPHATE 15 MM in SODIUM CHLORIDE 0.9% 250ML 250 ML IV ONE (17:15)
[2023-11-04] MEDS ORDERED: LIDOCAINE 4% PATCH TP SCH (09:00)
== END 2023-11-03 20:23 | disposition other institution (70) | DRG 683 ==
LOC: ER 23:10 → ERHOLD 10-28 00:16 → MED/SURG3 10-28 01:27
PROVIDERS: ADMIT Internal Medicine; ATTEND Internal Medicine
DX: N17.9 Acute kidney failure, unspecified (principal); E87.20 Acidosis, unspecified; M62.82 Rhabdomyolysis; E83.39 Other disorders of phosphorus metabolism; I12.9 Hypertensive chronic kidney disease with stage 1 through stage 4 chronic kidney disease, or unspecified chronic kidney disease; E11.22 Type 2 diabetes mellitus with diabetic chronic kidney disease; N18.30 Chronic kidney disease, stage 3 unspecified; E83.52 Hypercalcemia; F32.A Depression, unspecified; K21.9 Gastro-esophageal reflux disease without esophagitis; E86.0 Dehydration; K46.9 Unspecified abdominal hernia without obstruction or gangrene; Z11.52 Encounter for screening for COVID-19; M48.07 Spinal stenosis, lumbosacral region; M48.04 Spinal stenosis, thoracic region; M54.31 Sciatica, right side; M19.90 Unspecified osteoarthritis, unspecified site; Z79.890 Hormone replacement therapy; Z79.84 Long term (current) use of oral hypoglycemic drugs; Z90.49 Acquired absence of other specified parts of digestive tract
CPT/HCPCS: 36415; 72128; 72131; 76770; 80048; 80053; 80061; 81001; 82550; 82570; 82948; 83036; 83690; 83735; 84100; 84300; 84484; 85025; 93005; 99252; 99284; J1885; J2270; J2405; J2543; J7030; J7050; U0002